=== PATIENT | male | born 1960 | race Caucasian/White ===

== ENCOUNTER 2016-10-10 14:37 | Emergency (ER) | payer MEDICARE ==
[2016-10-10] MEDS ORDERED: Ibuprofen 800 MG TAB ONE (14:59)
[2016-10-10] MEDS ORDERED: traMADol HCl 50 MG TAB ONE (14:59)
[2016-10-10] MEDS ORDERED: Fentanyl 100 MCG/2 ML VIAL ONE (16:27)
[2016-10-10 16:28] LABS: #Basophils 0.1 thou/uL (0.0-0.2); #Lymphocytes 1.5 thou/uL (1.20-3.40); #Monocytes 1.2 thou/uL (0.11-0.59); #Neutrophils 10.7 thou/uL (1.40-6.50); %Basophils 0.4 % (0.0-1.0); %Eosinophils 0.1 % (0.0-10.0); %Monocytes 8.9 % (0.0-10.0); %Neutrophils 79.6 % (42.0-75.0); Hemoglobin 15.8 g/dL (14.0-18.0); Mean Corpuscular Hemoglobin 30.3 pg (27.0-31.0); Mean Corpuscular Volume 86.4 fl (80.0-94.0); Mean Platelet Volume 6.3 fL (7.4-10.4); Platelet Count 231 thou/uL (130-400); Red Blood Cell (RBC) Count 5.21 mill/uL (4.70-6.10); White Blood Cell (WBC) Count 13.4 thou/uL (4.8-10.8)
[2016-10-10 16:42] LABS: ALT (SGPT) 22 U/L (8-55); AST (SGOT) 21 U/L (5-34); Alkaline Phosphatase 67 U/L (40-150); Anion Gap 15 mmol/L (10-20); BUN (Urea Nitrogen) 24 mg/dL (8.4-25.7); Bilirubin, Total 0.6 mg/dL (0.2-1.2); Calc. Creatinine Clearance 0 mL/min (70-130); Calcium 9.6 mg/dL (7.8-10.44); Chloride 109 mmol/L (98-107); Estimated GFR-MDRD 63; Globulin 3.4 g/dL (2.4-3.5); Glucose 126 mg/dL (70-105); Potassium 3.8 mmol/L (3.5-5.1); Protein, Total 7.4 g/dL (6.0-8.3); Sodium 141 mmol/L (136-145)
[2016-10-10 17:00] LABS: Carbon Dioxide 21 mmol/L (22-29)
--- NOTE | 2016-10-10 20:24 | RAD ---
LEFT KNEE FOUR VIEWS: 10/10/16 A comminuted fracture is seen through the proximal tibia that extends into the tibial plateau centra lly and laterally. Another line extends medially a few centimeters below the medial tibial plateau. There is no significant displacement. There also appears to be a fracture of the fibular head medial ly. The distal femur appears intact. The joint space is preserved. The patella appears normal. Joint fluid is present as expected. IMPRESSION: Comminuted tibial plateau fracture and nondisplaced fibular head fracture. POS: HOME
--- NOTE | 2016-10-10 20:25 | RAD ---
LEFT LEG TWO VIEWS: 10/10/16 A comminuted fracture of the proximal tibia is present. One fracture line extends from just below th e medial tibial plateau upwards to the central part of the tibia and there are comminuted fractures involving the lateral tibial plateau. There is no significant displacement. There also appears to be a fracture through the fibular head medially. The remainder of the tibia and fibula appear intact. IMPRESSION: Tibial and fibular fractures as noted. POS: HOME
== END 2016-10-10 17:22 | disposition short-term general hospital (02) ==
LOC: BURERS 14:37
DX: S82.142A Displaced bicondylar fracture of left tibia, initial encounter for closed fracture (principal); S82.832A Other fracture of upper and lower end of left fibula, initial encounter for closed fracture; I10 Essential (primary) hypertension; W19.XXXA Unspecified fall, initial encounter
CPT/HCPCS: 29505; 80053; 85025; 96374; J3010